=== PATIENT | male | born 1955 | race Caucasian/White ===

== ENCOUNTER → 2019-09-04 | Day surgery (SDC) | payer OTHER ==
[~2019-09-04] MED LIST: CIALIS2.5 MG PO; CYCLOBENZAPRINE10 MG PO; KEFLEX500 MG PO; NORCO 5-325 TA1 EAC1 PO; NORCO 5-325 TA1 EACH PO; NORVASC10 MG PO; PROTONIX40 M1 PO; XALATAN2.5 ML OPHTHALMIC; ZESTRIL40 MG PO
[2019-09-04 12:59] LABS: HEMATOCRIT 40.1 % (42.0-52.0); HEMOGLOBIN 13.7 gm/dL (14.0-18.0); MCH 30.1 pg (26.0-34.0); MCHC 34.1 g/dL (28.0-37.0); MCV 88.1 fL (80.0-100.0); MPV 8.2 fl. (7.2-11.1); RBC 4.55 mil/uL (4.50-6.00); RDW-CV 13.6 % (10.5-14.5); WBC 9.8 thou/uL (4.0-11.0)
[2019-09-04 13:06] LABS: CALCIUM 8.8 mg/dL (8.5-10.1); CREATININE 1.1 mg/dL (0.6-1.3); POTASSIUM 4.2 mmol/L (3.5-5.1)
[2019-09-04 13:11] LABS: ALBUMIN 4.3 g/dL (3.4-5.0); TOTAL BILIRUBIN 0.9 mg/dL (<0.1-1.0); TOTAL PROTEIN 7.8 g/dL (6.4-8.2)
--- NOTE | 2019-09-04 15:31 | EKG ---
[place] [address] ELECTROCARDIOGRAM REPORT Name: JAYLEEN HITCHCOCK Room: [facility]#: [id number] Admission: 09/04/19 Attend Phys: La Tam MD Discharge: Date of : 59 Report #: [id number] THIS REPORT FOR: //name// [facility] Test Date: 2019-09-04 Test Time: 12:54:54 Pat Name: JAYLEEN HITCHCOCK Department: Room: Gender: M [employer]: RT : 1955 Requested By: La Tam Order Number: [id number] Reading MD: Jaren Joseph Measurements Intervals [place] Rate: 82 P: 46 IA: 173 QRS: 38 QRSD: 87 T: 21 QT: 347 QTc: 406 Interpretive Statements Sinus rhythm Abnormal R-wave progression, early transition No previous ECG available for comparison Electronically Signed On 09-04-2019 15:31:00 PATTERN DATA OPERATOR by Jarne Joseph [email or web address] <ELECTRONICALLY SIGNED> By: Jaren Joseph MD, [facility] 09/04/19 1531 1254 1254 Jaren Joseph MD, FACC /EPI
== END | disposition home or self-care (01) ==
LOC: M.SUR 07:01
PROVIDERS: Internal Medicine Gastroenterology
DX: K22.711 Barrett's esophagus with high grade dysplasia (principal); K44.9 Diaphragmatic hernia without obstruction or gangrene; Z98.890 Other specified postprocedural states; Z90.49 Acquired absence of other specified parts of digestive tract; Z88.8 Allergy status to other drugs, medicaments and biological substances; Z79.899 Other long term (current) drug therapy

== ENCOUNTER → 2019-12-13 | Day surgery (SDC) | payer OTHER ==
[2019-12-13 11:35] LABS: HEMOGLOBIN 14.2 gm/dL (14.0-18.0); MCHC 33.9 g/dL (28.0-37.0); MCV 88.5 fL (80.0-100.0); RBC 4.74 mil/uL (4.50-6.00); RDW-CV 13.7 % (10.5-14.5); WBC 7.5 thou/uL (4.0-11.0)
[2019-12-13 11:41] LABS: CALCIUM 9.1 mg/dL (8.5-10.1); POTASSIUM 4.4 mmol/L (3.5-5.1)
== END | disposition home or self-care (01) ==
LOC: M.SUR 08:21
PROVIDERS: Anesthesiology
DX: K22.711 Barrett's esophagus with high grade dysplasia (principal); K44.9 Diaphragmatic hernia without obstruction or gangrene; K21.9 Gastro-esophageal reflux disease without esophagitis; Z98.890 Other specified postprocedural states; Z79.899 Other long term (current) drug therapy; Z87.891 Personal history of nicotine dependence; Z86.19 Personal history of other infectious and parasitic diseases; Z90.49 Acquired absence of other specified parts of digestive tract; Z88.8 Allergy status to other drugs, medicaments and biological substances